=== PATIENT | female | born 1955 | race Two or more races ===

== ENCOUNTER 2023-11-18 19:16 | Emergency (ER) | payer OTHER ==
[~2023-11-18] VITALS: Ht 167.6 cm; Wt 79.8 kg
[2023-11-18] MEDS ORDERED: COZAAR25 MG (20:41)
[2023-11-18] MEDS ORDERED: ORPHENADRINE CITRATE 30 MG/ML AMPUL IM STA (21:50)
[2023-11-18] MEDS ORDERED: DEXAMETHASONE SODIUM PHOSPHATE 4 MG/ML VIAL IM STA (21:50)
[2023-11-18] MEDS ORDERED: ORPHENADRINE CITRATE 30 MG/ML AMPUL ONE (21:55)
[2023-11-18] MEDS ORDERED: DEXAMETHASONE SODIUM PHOSPHATE 4 MG/ML VIAL ONE (21:55)
== END 2023-11-18 22:08 | disposition home or self-care (01) ==
LOC: ER 19:17
DX: S70.11XA Contusion of right thigh, initial encounter (principal); W19.XXXA Unspecified fall, initial encounter; Y93.89 Activity, other specified; Y92.89 Other specified places as the place of occurrence of the external cause; Y99.8 Other external cause status; M62.838 Other muscle spasm; E11.9 Type 2 diabetes mellitus without complications
CPT/HCPCS: 96372; 99282; J1100; J2360